=== PATIENT | female | born 1965 | race Caucasian/White ===

== ENCOUNTER 2018-09-14 20:19 | Emergency (ER) | payer OTHER, SELFPAY ==
[2018-09-14 20:37] VITALS: BP 127/69; PULSE 89; RESP 18; TEMP 37.6; O2SAT 98; BMI 27.2
--- NOTE | 2018-09-14 20:42 | DI.RAD.S_ITS ---
PROCEDURE: XR CHEST 2V INDICATIONS: cough/fever TECHNIQUE: 2 views of the chest were acquired. COMPARISON: None. FINDINGS: Surgical changes and devices: Cholecystectomy clips.. Lungs and pleura: Lungs are clear. No pleural effusions or pneumothorax. Mediastinum: Mediastinal contours are normal. Heart size is normal. Bones and chest wall: No suspicious bony abnormalities. Soft tissues appear unremarkable. IMPRESSION: No acute cardiopulmonary disease process. Dictated by: Yue Whitaker MD, PhD on 09/14/2018 at 21:17 Approved by: Yue Whitaker MD, PhD on 09/14/2018 at 21:17
[2018-09-14 21:04] LABS: Influenza A and B by PCR Rapid Negative (Negative)
[2018-09-15] MEDS: SODIUM CHLORIDE 0.9% 1,000 ML 1000 ML IV (00:23)
[2018-09-15 00:30] LABS: Add Manual Diff / Slide Review NO; Basophils Absolute Auto 100 /uL (0-100); Basophils Percent Auto 0.6 % (0-2); Eosinophils Absolute Auto 100 /uL (0-450); Eosinophils Percent Auto 0.6 % (2-4); Hematocrit 37.2 % (36-46); Hemoglobin 12.7 g/dL (12.0-16.0); Lymphocytes Absolute Auto 1900 /uL (1100-4500); Lymphocytes Percent Auto 21.2 % (25-40); Mean Corpuscular Hemoglobin 29.5 PG (26-34); Mean Corpuscular Volume 86.7 fL (80-100); Monocytes Absolute Auto 700 /uL (0-900); Neutrophils Absolute Auto 6200 /uL (1500-7000); Neutrophils Percent Auto 69.6 % (50-75); Platelet Count 224 X10^3/uL (150-400); Red Blood Cell Count 4.29 X10^6/uL (4.0-5.2); Red Cell Distribution Width 13.4 % (11.6-14.8); White Blood Cell Count 8.9 X10^3/uL (4.5-11.0)
--- NOTE | 2018-09-15 00:32 | ED.URI ---
HPI - URI/Sore Throat General Chief Complaint: Upper Respiratory Symptoms Stated Complaint: FEVER, STATES RSV Time Seen by Provider: 09/14/18 22:27 Source: patient and family Mode of arrival: ambulatory Limitations: no limitations History of Present Illness HPI Narrative: 52-year-old former smoker otherwise healthy presents with her and 3 weeks of viral upper respiratory symptoms. She had been told me by a medical provider at a walk-in clinic that she likely has RSV. Patient has ongoing runny nose occasional hacking cough and some wheeze. She denies nausea or vomiting but did have some diarrhea about a week ago. Admittedly her symptoms were worse about a week ago but she thought she would get checked out given how long the symptoms have lasted on the whole. She has had no fever or chills. MD Complaint: cough, rhinorrhea and nasal congestion Onset (ago): week(s) Duration: constant Severity: moderate Relieving factors: nothing Exacerbating factors: nothing Description of mucous: clear Able to tolerate fluids by mouth: Yes Treatments prior to arrival: none Related Data Home Medications Medication Instructions Recorded Confirmed ASPIRIN (Aspirin Low Dose) 81 mg PO QDAY #0 11/28/09 Doxycycline Hyclate (Vibramycin) 100 mg PO PRN #0 11/28/09 ISOSORBIDE MONONITRATE (Isosorbide 30 mg PO HS #0 11/28/09 Mononitrate ER) Diltiazem Hydrochloride (Diltiazem 240 mg PO Q DAY #0 12/04/09 24HR Cd) NITROGLYCERIN (Nitrobid) PRN #0 12/04/09 TRAMADOL HYDROCHLORIDE (Ultram) 200 mg PO Q DAY #0 12/04/09 Review of Systems Constitutional Denies chills, Denies fever(s), Denies lethargy and Reports weakness Eyes Denies change in vision, Denies eye discharge, Denies irritation and Denies loss of vision ENT Ears, Nose, Mouth, and Throat: Denies change in voice, Reports nasal congestion, Reports nasal discharge, Denies neck pain and Denies sore throat Cardiovascular Denies chest pain, Denies irregular heart rhythm, Denies lightheadedness, Denies palpitations, Denies dyspnea, Denies dyspnea on exertion and Denies orthopnea Respiratory Denies cough, Denies dyspnea, Denies dyspnea on exertion and Reports wheezing Gastrointestinal Gastrointestinal: Denies abdominal pain, Denies change in bowel habits, Denies diarrhea, Denies nausea and Denies vomiting Genitourinary Denies hematuria, Denies flank pain, Denies urinary incontinence and Denies urinary urgency Musculoskeletal Denies neck pain Integumentary/Breasts Denies pruritus, Denies erythema, Denies rash and Denies wounds Neurologic Denies confusion, Denies loss of vision and Reports weakness Psychiatric Denies anxiety, Denies confusion, Denies depression, Denies homicidal ideation and Denies suicidal ideation Endocrine Denies palpitations Hematologic/Lymphatic Denies easy bruising Allergic/Immunologic Reports wheezing PFSH Social History Smoking Status: Never smoker Social History Smoking Status: Never smoker Exam Narrative Exam Narrative: GENERAL: This is a well-nourished, well-developed patient, in mild distress. HEAD: Atraumatic. Normocephalic. No temporal or scalp tenderness. EYES: Pupils equal round and reactive. Extraocular motions intact. No scleral icterus. No injection or drainage. ENT: Nose without bleeding, purulent drainage or septal hematoma. Throat without erythema, tonsillar hypertrophy or exudate. Uvula midline. Airway patent. NECK: Trachea midline. No JVD or lymphadenopathy. Supple, nontender, no meningeal signs. CARDIOVASCULAR: Regular rate and rhythm without murmurs, gallops, or rubs. RESPIRATORY: Mild expiratory wheeze no rales or rhonchi GASTROINTESTINAL: Abdomen soft, non-tender, nondistended. No hepato-splenomegaly, or palpable masses. No guarding. EXTREMITIES: No clubbing, cyanosis, or edema. No joint tenderness, effusion, or edema noted. BACK: Nontender without deformity or crepitance. No flank tenderness. NEURO: AOx3. SKIN: No rash or erythema. Initial Vital Signs Initial Vital Signs: Vital Signs Temperature 99.6 F 09/14/18 20:37 Pulse Rate 89 09/14/18 20:37 Respiratory Rate 18 09/14/18 20:37 Blood Pressure 127/69 09/14/18 20:37 Pulse Oximetry 98 09/14/18 20:37 Course Orders Ordered: ED Orders 09/14/18 23:58 Basic Metabolic Panel Stat Complete Blood Count AUTO DIFF Stat 09/15/18 00:20 Monotest Stat Discontinued Medications Sodium Chloride (Normal Saline 0.9%) 1,000 mls @ 1,000 mls/hr IV BOLUS ONE Stop: 09/15/18 00:56 Last Infusion: 09/15/18 01:49 Dose: 0 mls/hr Admin: 09/15/18 00:23 Dose: 1,000 mls/hr Vital Signs - 8 hr 09/15/18 01:39 Temperature 98.4 F Pulse Rate 71 Blood Pressure [Left Arm] 107/70 Pulse Oximetry 96 MDM - URI/Sore Throat Lab Data Result diagrams: 09/15/18 00:20 09/15/18 00:20 Lab Results 09/14/18 09/15/18 09/15/18 Range/Units 20:44 00:20 00:20 WBC 8.9 (4.5-11.0) X10^3/uL RBC 4.29 (4.0-5.2) X10^6/uL Hgb 12.7 (12.0-16.0) g/dL Hct 37.2 (36-46) % MCV 86.7 (80-100) fL MCH 29.5 (26-34) PG MCHC 34.0 (30-36) % RDW 13.4 (11.6-14.8) % Plt Count 224 (150-400) X10^3/uL Neut % (Auto) 69.6 (50-75) % Lymph % (Auto) 21.2 L (25-40) % [place] % (Auto) 8.0 (3-14) % Eos % (Auto) 0.6 L (2-4) % Baso % (Auto) 0.6 (0-2) % Neut # (Auto) 6200 (6044-2644) /uL Lymph # (Auto) 1900 (1679-8088) /uL [place] # (Auto) 700 (0-900) /uL Eos # (Auto) 100 (0-450) /uL Baso # (Auto) 100 (0-100) /uL Sodium 138 (137-145) mmol/L Potassium 3.9 (3.4-5.1) mmol/L Chloride 102 (98-107) mmol/L Carbon Dioxide 27 (22-32) mmol/L BUN 14 (7-17) mg/dL Creatinine 0.80 (0.52-1.04) mg/dL Estimated GFR > 60.0 (>60) mL/min BUN/Creatinine Ratio 17.5 (6-22) Glucose 100 (70-100) mg/dL Calcium 9.5 (8.4-10.2) mg/dL Monoscreen (Negative) Influenza A & B (PCR) Negative (Negative) 09/15/18 Range/Units 00:20 WBC (4.5-11.0) X10^3/uL RBC (4.0-5.2) X10^6/uL Hgb (12.0-16.0) g/dL Hct (36-46) % MCV (80-100) fL MCH (26-34) PG MCHC (30-36) % RDW (11.6-14.8) % Plt Count (150-400) X10^3/uL Neut % (Auto) (50-75) % Lymph % (Auto) (25-40) % [place] % (Auto) (3-14) % Eos % (Auto) (2-4) % Baso % (Auto) (0-2) % Neut # (Auto) (0507-3091) /uL Lymph # (Auto) (2200-3020) /uL [place] # (Auto) (0-900) /uL Eos # (Auto) (0-450) /uL Baso # (Auto) (0-100) /uL Sodium (137-145) mmol/L Potassium (3.4-5.1) mmol/L Chloride (98-107) mmol/L Carbon Dioxide (22-32) mmol/L BUN (7-17) mg/dL Creatinine (0.52-1.04) mg/dL Estimated GFR (>60) mL/min BUN/Creatinine Ratio (6-22) Glucose (70-100) mg/dL Calcium (8.4-10.2) mg/dL Monoscreen Negative (Negative) Influenza A & B (PCR) (Negative) Imaging Data Chest x-ray: Attestation: I personally reviewed and interpreted this imaging study as follows: My impression: No acute process Discharge Plan Departure Patient Disposition: Home Clinical Impression: Viral syndrome Discharge Date/Time: 09/15/18 01:51 Interventions: ED Discharge Assessment Last Done: 09/15/18 01:50 Instructions: DI for Viral Syndrome Activity Restrictions/Additional Instructions: *You have been diagnosed with [acute viral syndrome ] *What to do: *Take medications as directed *Follow up with your primary care provider in 2-3 days, call for an appointment. Let them know you were seen in the Emergency Department and that we ask that you be seen in follow up *Return to ER if you should have any new, worsening or concerning symptoms Prescriptions: No Action ASPIRIN (Aspirin Low Dose) 81 mg PO QDAY Qty: 0 RF: 0 ISOSORBIDE MONONITRATE (Isosorbide Mononitrate ER) 30 mg PO HS Qty: 0 RF: 0 Doxycycline Hyclate (Vibramycin) 100 mg PO PRN Qty: 0 RF: 0 NITROGLYCERIN (Nitrobid) PRN Qty: 0 RF: 0 Diltiazem Hydrochloride (Diltiazem 24HR Cd) 240 mg PO Q DAY Qty: 0 RF: 0 TRAMADOL HYDROCHLORIDE (Ultram) 200 mg PO Q DAY Qty: 0 RF: 0 Referrals: Kelsi Ernandez PA-C [Primary Care Provider] -
[2018-09-15 00:40] LABS: BUN Creatinine Ratio 17.5 (6-22); Blood Urea Nitrogen 14 mg/dL (7-17); Calcium 9.5 mg/dL (8.4-10.2); Carbon Dioxide 27 mmol/L (22-32); Chloride 102 mmol/L (98-107); Estimated Glomerular Filt Rate > 60.0 mL/min (>60); Glucose 100 mg/dL (70-100); HEMOLYSIS < 15 (0-50); Potassium 3.9 mmol/L (3.4-5.1); Sodium 138 mmol/L (137-145)
[2018-09-15 01:28] LABS: Monotest Negative (Negative)
[2018-09-15 01:39] VITALS: BP 107/70; PULSE 71; TEMP 36.9; O2SAT 96
--- NOTE | 2018-09-15 07:11 | ED_ITS ---
HPI - URI/Sore Throat General Chief Complaint: Upper Respiratory Symptoms Stated Complaint: FEVER, STATES RSV Time Seen by Provider: 09/14/18 22:27 Source: patient and family Mode of arrival: ambulatory Limitations: no limitations History of Present Illness HPI Narrative: 52-year-old former smoker otherwise healthy presents with her and 3 weeks of viral upper respiratory symptoms. She had been told me by a medical provider at a walk-in clinic that she likely has RSV. Patient has ongoing runny nose occasional hacking cough and some wheeze. She denies nausea or vomiting but did have some diarrhea about a week ago. Admittedly her symptoms were worse about a week ago but she thought she would get checked out given how long the symptoms have lasted on the whole. She has had no fever or chills. MD Complaint: cough, rhinorrhea and nasal congestion Onset (ago): week(s) Duration: constant Severity: moderate Relieving factors: nothing Exacerbating factors: nothing Description of mucous: clear Able to tolerate fluids by mouth: Yes Treatments prior to arrival: none Related Data Home Medications Medication Instructions Recorded Confirmed ASPIRIN (Aspirin Low Dose) 81 mg PO QDAY #0 11/28/09 Doxycycline Hyclate (Vibramycin) 100 mg PO PRN #0 11/28/09 ISOSORBIDE MONONITRATE (Isosorbide 30 mg PO HS #0 11/28/09 Mononitrate ER) Diltiazem Hydrochloride (Diltiazem 240 mg PO Q DAY #0 12/04/09 24HR Cd) NITROGLYCERIN (Nitrobid) PRN #0 12/04/09 TRAMADOL HYDROCHLORIDE (Ultram) 200 mg PO Q DAY #0 12/04/09 Review of Systems Constitutional Denies chills, Denies fever(s), Denies lethargy and Reports weakness Eyes Denies change in vision, Denies eye discharge, Denies irritation and Denies loss of vision ENT Ears, Nose, Mouth, and Throat: Denies change in voice, Reports nasal congestion, Reports nasal discharge, Denies neck pain and Denies sore throat Cardiovascular Denies chest pain, Denies irregular heart rhythm, Denies lightheadedness, Denies palpitations, Denies dyspnea, Denies dyspnea on exertion and Denies orthopnea Respiratory Denies cough, Denies dyspnea, Denies dyspnea on exertion and Reports wheezing Gastrointestinal Gastrointestinal: Denies abdominal pain, Denies change in bowel habits, Denies diarrhea, Denies nausea and Denies vomiting Genitourinary Denies hematuria, Denies flank pain, Denies urinary incontinence and Denies uri nary urgency Musculoskeletal Denies neck pain Integumentary/Breasts Denies pruritus, Denies erythema, Denies rash and Denies wounds Neurologic Denies confusion, Denies loss of vision and Reports weakness Psychiatric Denies anxiety, Denies confusion, Denies depression, Denies homicidal ideation and Denies suicidal ideation Endocrine Denies palpitations Hematologic/Lymphatic Denies easy bruising Allergic/Immunologic Reports wheezing PFSH Social History Smoking Status: Never smoker Social History Smoking Status: Never smoker Exam Narrative Exam Narrative: GENERAL: This is a well-nourished, well-developed patient, in mild distress. HEAD: Atraumatic. Normocephalic. No temporal or scalp tenderness. EYES: Pupils equal round and reactive. Extraocular motions intact. No scleral icterus. No injection or drainage. ENT: Nose without bleeding, purulent drainage or septal hematoma. Throat without erythema, tonsillar hypertrophy or exudate. Uvula midline. Airway patent. NECK: Trachea midline. No JVD or lymphadenopathy. Supple, nontender, no meningeal signs. CARDIOVASCULAR: Regular rate and rhythm without murmurs, gallops, or rubs. RESPIRATORY: Mild expiratory wheeze no rales or rhonchi GASTROINTESTINAL: Abdomen soft, non-tender, nondistended. No hepato- splenomegaly, or palpable masses. No guarding. EXTREMITIES: No clubbing, cyanosis, or edema. No joint tenderness, effusion, or edema noted. BACK: Nontender without deformity or crepitance. No flank tenderness. NEURO: AOx3. SKIN: No rash or erythema. Initial Vital Signs Initial Vital Signs: Vital Signs Temperature 99.6 F 09/14/18 20:37 Pulse Rate 89 09/14/18 20:37 Respiratory Rate 18 09/14/18 20:37 Blood Pressure 127/69 09/14/18 20:37 Pulse Oximetry 98 09/14/18 20:37 Course Orders Ordered: ED Orders 09/14/18 23:58 Basic Metabolic Panel Stat Complete Blood Count AUTO DIFF Stat 09/15/18 00:20 Monotest Stat Discontinued Medications Sodium Chloride (Normal Saline 0.9%) 1,000 mls @ 1,000 mls/hr IV BOLUS ONE Stop: 09/15/18 00:56 Last Infusion: 09/15/18 01:49 Dose: 0 mls/hr Admin: 09/15/18 00:23 Dose: 1,000 mls/hr Vital Signs - 8 hr 09/15/18 01:39 Temperature 98.4 F Pulse Rate 71 Blood Pressure [Left Arm] 107/70 Pulse Oximetry 96 MDM - URI/Sore Throat Lab Data Result diagrams: 09/15/18 00:20 09/15/18 00:20 Lab Results 09/14/18 09/15/18 09/15/18 Range/Units 20:44 00:20 00:20 WBC 8.9 (4.5-11.0) X10^3/uL RBC 4.29 (4.0-5.2) X10^6/uL Hgb 12.7 (12.0-16.0) g/dL Hct 37.2 (36-46) % MCV 86.7 (80-100) fL MCH 29.5 (26-34) PG MCHC 34.0 (30-36) % RDW 13.4 (11.6-14.8) % Plt Count 224 (150-400) X10^3/uL Neut % (Auto) 69.6 (50-75) % Lymph % (Auto) 21.2 L (25-40) % [place] % (Auto) 8.0 (3-14) % Eos % (Auto) 0.6 L (2-4) % Baso % (Auto) 0.6 (0-2) % Neut # (Auto) 6200 (6588-8165) /uL Lymph # (Auto) 1900 (2065-5371) /uL [place] # (Auto) 700 (0-900) /uL Eos # (Auto) 100 (0-450) /uL Baso # (Auto) 100 (0-100) /uL Sodium 138 (137-145) mmol/L Potassium 3.9 (3.4-5.1) mmol/L Chloride 102 (98-107) mmol/L Carbon Dioxide 27 (22-32) mmol/L BUN 14 (7-17) mg/dL Creatinine 0.80 (0.52-1.04) mg/dL Estimated GFR > 60.0 (>60) mL/min BUN/Creatinine Ratio 17.5 (6-22) Glucose 100 (70-100) mg/dL Calcium 9.5 (8.4-10.2) mg/dL Monoscreen (Negative) Influenza A & B (PCR) Negative (Negative) 09/15/18 Range/Units 00:20 WBC (4.5-11.0) X10^3/uL RBC (4.0-5.2) X10^6/uL Hgb (12.0-16.0) g/dL Hct (36-46) % MCV (80-100) fL MCH (26-34) PG MCHC (30-36) % RDW (11.6-14.8) % Plt Count (150-400) X10^3/uL Neut % (Auto) (50-75) % Lymph % (Auto) (25-40) % [place] % (Auto) (3-14) % Eos % (Auto) (2-4) % Baso % (Auto) (0-2) % Neut # (Auto) (7039-6053) /uL Lymph # (Auto) (3678-5609) /uL [place] # (Auto) (0-900) /uL Eos # (Auto) (0-450) /uL Baso # (Auto) (0-100) /uL Sodium (137-145) mmol/L Potassium (3.4-5.1) mmol/L Chloride (98-107) mmol/L Carbon Dioxide (22-32) mmol/L BUN (7-17) mg/dL Creatinine (0.52-1.04) mg/dL Estimated GFR (>60) mL/min BUN/Creatinine Ratio (6-22) Glucose (70-100) mg/dL Calcium (8.4-10.2) mg/dL Monoscreen Negative (Negative) Influenza A & B (PCR) (Negative) Imaging Data Chest x-ray: Attestation: I personally reviewed and interpreted this imaging study as follows: My impression: No acute process Discharge Plan Departure Patient Disposition: Home Clinical Impression: Viral syndrome Discharge Date/Time: 09/15/18 01:51 Interventions: ED Discharge Assessment Last Done: 09/15/18 01:50 Instructions: DI for Viral Syndrome Activity Restrictions/Additional Instructions: *You have been diagnosed with [acute viral syndrome ] *What to do: *Take medications as directed *Follow up with your primary care provider in 2-3 days, call for an appointment. Let them know you were seen in the Emergency Department and that we ask that you be seen in follow up *Return to ER if you should have any new, worsening or concerning symptoms Prescriptions: No Action ASPIRIN (Aspirin Low Dose) 81 mg PO QDAY Qty: 0 RF: 0 ISOSORBIDE MONONITRATE (Isosorbide Mononitrate ER) 30 mg PO HS Qty: 0 RF: 0 Doxycycline Hyclate (Vibramycin) 100 mg PO PRN Qty: 0 RF: 0 NITROGLYCERIN (Nitrobid) PRN Qty: 0 RF: 0 Diltiazem Hydrochloride (Diltiazem 24HR Cd) 240 mg PO Q DAY Qty: 0 RF: 0 TRAMADOL HYDROCHLORIDE (Ultram) 200 mg PO Q DAY Qty: 0 RF: 0 Referrals: Kelsi Ernandez PA-C [Primary Care Provider] -
== END 2018-09-15 01:51 | disposition home or self-care (01) ==
PROVIDERS: Emergency Provider Emergency Medicine; Family Provider Physician Assistant Medical; PCP Physician Assistant Medical
DX: B34.9 Viral infection, unspecified (principal)
CPT/HCPCS: 36591; 71046; 80048; 85025; 86318; 87400; 96360; 99283; 99284

== ENCOUNTER → 2019-02-22 09:47 | Outpatient (CLI) | payer OTHER, SELFPAY ==
--- NOTE | 2019-02-22 | DI.MRI.S_ITS ---
PROCEDURE: MR ANKLE LT WO CON INDICATIONS: UNSPECIFIED INJURY ON LEFT FOOT TECHNIQUE: Noncontrast sagittal T1 spin echo and T2 fast spin echo with fat saturation, axial proton density fast spin echo and T2 fast spin echo with fat saturation, coronal T1 spin echo and T2 fast spin echo with fat saturation through the ankle/hindfoot. COMPARISON: None. FINDINGS: Image quality: Diagnostic. Bones and joints: No acute fracture, dislocation, or suspicious osseous lesion involving the osseous structures of the midfoot or hindfoot is appreciated. No significant joint effusions are identified. Mild degenerative cystic change and associated marrow edema along the medial border of the talar dome and medial aspect of the body of the talus is identified. This edema extends into the head and neck of the medial talus. There is also marrow edema identified involving the middle cuneiform. The ankle mortise is well-maintained. No osteochondral fragments are appreciated. There is a small plantar calcaneal spur with associated reactive marrow edema. Slight heterogeneity involving the anterior process of the calcaneus probably is related to previous injury. There are mild to moderate degenerative changes involving the talonavicular and tarsonavicular joints. Medial structures: The deltoid and spring ligaments are intact. Slight increased signal of the superomedial band of the spring ligament is noted. The plantar components of the spring ligament are intact. The tibialis posterior, flexor digitorum longus, and flexor hallucis longus tendons appear to be within normal limits. A small amount of fluid is contained within their corresponding tendon sheaths. Minimal subcutaneous edema overlying the medial aspect of the ankle is present. The posterior tibial nerve through the tarsal tunnel appears to be within normal limits. Lateral structures: The anterior and posterior distal tibiofibular ligaments appear to be intact. The anterior and posterior talofibular ligaments also appear intact. The calcaneofibular ligament is intact. There is flattening of the peroneus brevis tendon along the posterior margin of the tip of the lateral malleolus with a questionable short segment longitudinal split tear just above the tip of the lateral malleolus, which is not adequately evaluated. Thickening and increased signal involving the peroneus longus tendon is identified without significant tearing. Fluid is contained within their corresponding tendon sheaths. There is mild subcutaneous edema overlying the lateral malleolus. Anterior structures: The tibialis anterior, extensor hallucis longus, and extensor digitorum longus tendons appear intact. Posterior and plantar structures: Achilles tendon is intact. However, there is mild increased signal and focal thickening involving the medial margin of the distal Achilles tendon. Medial and lateral bands of the plantar fascia are of normal thickness. IMPRESSION: 1. Moderate marrow edema The medial border of the talus may represent bone contusion or degenerative marrow change. Clinical correlation is recommended. No displaced fractures are evident. 2. Mild tenosynovitis involving the medial flexor tendons. 3. Peroneus brevis/longus tendinopathy with a possible short segment longitudinal split tear of the peroneus brevis tendon. 4. Mild distal Achilles tendinopathy. 5. Mild to moderate degenerative changes involving the tarsonavicular and talonavicular joints. Dictated by: Juwan Gomez M.D. on 02/22/2019 at 17:05 Approved by: Juwan Gomez M.D. on 02/22/2019 at 17:11
== END ==
PROVIDERS: PCP Physician Assistant Medical; Visit Provider Podiatrist
DX: S99.922D Unspecified injury of left foot, subsequent encounter (principal); M25.572 Pain in left ankle and joints of left foot; M65.872 Other synovitis and tenosynovitis, left ankle and foot; R26.2 Difficulty in walking, not elsewhere classified
CPT/HCPCS: 73721

== ENCOUNTER → 2020-06-12 16:21 | Outpatient (CLI) | payer OTHER, SELFPAY ==
--- NOTE | 2020-06-12 16:25 | DI.MG.S_ITS ---
BILATERAL DIGITAL SCREENING MAMMOGRAM 3D/2D WITH CAD: 06/12/2020 CLINICAL: Routine screening. Comparison is made to exams dated: 07/15/2017 mammogram, 01/03/2016 mammogram, and 12/14/2013 mammogram - [facility]. There are scattered fibroglandular elements in both breasts. Current study was also evaluated with a Computer Aided Detection (CAD) system. No significant masses, calcifications, or other findings are seen in either breast. There has been no significant interval change. IMPRESSION: NEGATIVE There is no mammographic evidence of malignancy. A 1 year screening mammogram is recommended. This exam was interpreted at Station ID: [id number]. NOTE: For mammograms, a report in lay terms will be sent to the patient. Approximately 15% of breast malignancies will not be visualized mammographically. In the management of a palpable breast mass, a negative mammogram must not discourage biopsy of a clinically suspicious lesion. Electronically Signed By: Davis grey/donna:06/12/2020 16:51:01 letter sent: Normal Exam ACR BI-RADS Category 1: Negative 3341F
== END ==
PROVIDERS: PCP Physician Assistant Medical; Referring Provider Physician Assistant Medical; Visit Provider Physician Assistant Medical
DX: Z12.31 Encounter for screening mammogram for malignant neoplasm of breast (principal)
CPT/HCPCS: 77063; 77067

== ENCOUNTER 2021-06-10 12:59 | Emergency (ER) | payer OTHER, SELFPAY ==
[2021-06-10 13:07] VITALS: BP 150/65; PULSE 78; RESP 18; TEMP 36.6; O2SAT 99
== END 2021-06-10 16:15 | disposition left against medical advice (07) ==
PROVIDERS: Emergency Provider Emergency Medicine; PCP Physician Assistant Medical
DX: Z53.21 Procedure and treatment not carried out due to patient leaving prior to being seen by health care provider (principal)
CPT/HCPCS: 99281

== ENCOUNTER 2021-10-25 13:08 | Emergency (ER) | payer OTHER, SELFPAY ==
[2021-10-25 13:14] VITALS: BP 178/94; PULSE 72; RESP 18; TEMP 36.4; O2SAT 100; BMI 25.1
--- NOTE | 2021-10-25 13:20 | DI.RAD.S_ITS ---
PROCEDURE: XR CHEST 1V INDICATIONS: chest pain TECHNIQUE: One view of the chest was acquired. COMPARISON: [facility], CR, XR CHEST 2V, 09/14/2018, 20:50. FINDINGS: Surgical changes and devices: Cholecystectomy clips. Lungs and pleura: Lungs are clear. No pleural effusions or pneumothorax. Mediastinum: Mediastinal contours appear normal. Heart size is normal. Bones and chest wall: No suspicious bony lesions. Overlying soft tissues appear unremarkable. IMPRESSION: No acute pulmonary process. Dictated by: Michelle Ramachandran M.D. on 10/25/2021 at 14:00 Approved by: Michelle Ramachandran M.D. on 10/25/2021 at 14:00
--- NOTE | 2021-10-25 14:16 | ED_ITS ---
HPI - Chest Pain <Perfecto Ibarra PA-C - Last Filed: 10/25/21 15:51> General Chief Complaint: Chest Pain Stated Complaint: Hx of Angina Time Seen by Provider: 10/25/21 13:38 Source: patient Mode of arrival: Family Vehicle Limitations: no limitations History of Present Illness HPI narrative: This is a 55-year-old female presenting to the emergency department due to an episode of ?head fuzziness and heart palpitations just prior to arrival. Patient states that this has happened multiple times in the last 6 months and has seen a director of analytical development for it for which they did a stress echo and had her sent home with a Holter monitor. She is return the Holter monitors the director of analytical development approximately 10 days ago and has not heard back regarding the results. Has a follow-up appointment with cardiology in roughly 1 month. She also states that they have not informed her of the cardiac stress test results although she states that ?they did not seem to be anything serious? well doing the test. P atient states that she occasionally notices her heart rate going to roughly 100 and then down to the mid 50s when she notices the symptoms. The symptoms began at rest. Concurrently denies any nausea, vomiting, shortness of breath, chest pain, slurred speech, or any other concerning signs or symptoms. Related Data Home Medications Medication Instructions Recorded Confirmed ASPIRIN (Aspirin Low Dose) 81 mg PO QDAY #0 11/28/09 Doxycycline Hyclate (Vibramycin) 100 mg PO PRN #0 11/28/09 ISOSORBIDE MONONITRATE (Isosorbide 30 mg PO HS #0 11/28/09 Mononitrate ER) Diltiazem Hydrochloride (Diltiazem 240 mg PO Q DAY #0 12/04/09 24HR Cd) NITROGLYCERIN (Nitrobid) PRN #0 12/04/09 TRAMADOL HYDROCHLORIDE (Ultram) 200 mg PO Q DAY #0 12/04/09 Allergies Allergy/AdvReac Type Severity Reaction Status Date / Time No Known Drug Allergies Allergy Verified 10/25/21 13:19 Review of Systems <MARCO Barrientos Last Filed: 10/25/21 15:51> Review of Systems Narrative: Positive for heart palpitations Negative for nausea, vomiting, shortness of breath, chest pain, slurred speech Patient History <MARCO Barrientos Last Filed: 10/25/21 15:51> Social History Smoking Status: Never smoker Smoking Status: Never smoker alcohol intake frequency: 0-2 drinks per day Substance Use Type: does not use Exam <MARCO Barrientos Last Filed: 10/25/21 15:51> Narrative Exam Narrative: GENERAL: Well-developed patient, in mild distress. HEAD: Atraumatic. Normocephalic. EYES: Pupils equal round and reactive. Extraocular motions intact. No scleral icterus. No injection or drainage. ENT: Nose without bleeding, purulent drainage. Throat without erythema, tonsillar hypertrophy or exudate. Airway patent. NECK: Trachea midline. Non tender CARDIOVASCULAR: Regular rate and rhythm without murmurs, gallops, or rubs. RESPIRATORY: Clear to auscultation. Breath sounds equal bilaterally. No wheezes, rales, or rhonchi. GASTROINTESTINAL: Abdomen soft, non-tender, nondistended. EXTREMITIES: No edema or joint tenderness. BACK: Nontender without deformity or crepitance. No flank tenderness. NEURO: AOx3. CN 2 through 12 intact SKIN: No rash or erythema of visible areas Initial Vital Signs Initial Vital Signs: Vital Signs Temperature 97.6 F 10/25/21 13:14 Pulse Rate 72 10/25/21 13:14 Respiratory Rate 18 10/25/21 13:14 Blood Pressure 178/94 H 10/25/21 13:14 Pulse Oximetry 100 10/25/21 13:14 <Dawna Sanchez DO - Last Filed: 10/26/21 08:51> Initial Vital Signs Initial Vital Signs: Vital Signs Temperature 97.6 F 10/25/21 13:14 Pulse Rate 72 10/25/21 13:14 Respiratory Rate 18 10/25/21 13:14 Blood Pressure 178/94 H 10/25/21 13:14 Pulse Oximetry 100 10/25/21 13:14 Course <MARCO Barrientos Last Filed: 10/25/21 15:51> Orders Ordered: ED Orders 10/25/21 13:20 XR chest 1V Stat EKG-12 Lead Stat 10/25/21 14:49 Complete Blood Count AUTO DIFF Stat Comprehensive Metabolic Panel Stat Lipase Stat Magnesium Stat Troponin & CK Cardiac Panel Stat Consultations Consultation #1: [id number]: Spoke with Dr. Ling of Cardiology concerning the patient who recommended discharge and follow-up with Dr. Mcqueen regarding results of Baer er monitor. Vital Signs Vital signs: Vital Signs - 8 hr 10/25/21 13:14 Temperature 97.6 F Pulse Rate 72 Respiratory Rate 18 Blood Pressure 178/94 H Pulse Oximetry 100 <Dawna Sanchez DO - Last Filed: 10/26/21 08:51> Orders Ordered: ED Orders 10/25/21 13:20 XR chest 1V Stat EKG-12 Lead Stat 10/25/21 14:49 Complete Blood Count AUTO DIFF Stat Comprehensive Metabolic Panel Stat Lipase Stat Magnesium Stat Troponin & CK Cardiac Panel Stat Vital Signs Vital signs: Vital Signs - 8 hr 10/25/21 13:14 Temperature 97.6 F Pulse Rate 72 Respiratory Rate 18 Blood Pressure 178/94 H Pulse Oximetry 100 MDM - Chest Pain <Perfecto Ibarra PA-C - Last Filed: 10/25/21 15:51> Medical Records Data Medical records narrative: Records obtained from director of analytical development, Dr. Mcqueen from visit on 05/17/2021. On record review patient was negative for evidence of epicardial coronary artery disease on catheterization 06/11/2004. Patient is currently taking diltiazem and isosorbide dinitrate as needed for exertion. Patient also had a stress echo on 08/02/2014 with no abnormality. EKG on 05/17/2021 showed no abnormalities. Stress echo and Holter monitor ordered during that visit and instructed to follow-up in 2-3 months. Stress echo from 07/26/2021 showed no acute abnormalities. Lab Data Result diagrams: 10/25/21 14:49 10/25/21 14:49 Labs: Lab Results 10/25/21 10/25/21 Range/Units 14:49 14:49 WBC 4.2 L (4.5-11.0) X10^3/uL RBC 4.65 (4.0-5.2) X10^6/uL Hgb 14.0 (12.0-16.0) g/dL Hct 40.6 (36-46) % MCV 87.3 (80-100) fL MCH 30.1 (26-34) PG MCHC 34.5 (30-36) % RDW 13.9 (11.6-14.8) % Plt Count 137 L (150-400) X10^3/uL Neut % (Auto) 65.1 (50-75) % Lymph % (Auto) 26.2 (25-40) % [place] % (Auto) 7.1 (3-14) % Eos % (Auto) 0.9 L (2-4) % Baso % (Auto) 0.7 (0-2) % Neut # (Auto) 2700 (4201-4188) /uL Lymph # (Auto) 1100 (9279-9137) /uL [place] # (Auto) 300 (0-900) /uL Eos # (Auto) 0 (0-450) /uL Baso # (Auto) 0 (0-100) /uL Sodium 140 (137-145) mmol/L Potassium 4.2 (3.4-5.1) mmol/L Chloride 105 (98-107) mmol/L Carbon Dioxide 28 (22-32) mmol/L BUN 15 (7-17) mg/dL Creatinine 0.85 (0.52-1.04) mg/dL Estimated GFR > 60 (>60) mL/min BUN/Creatinine Ratio 17.6 (6-22) Glucose 96 (70-100) mg/dL Calcium 9.5 (8.4-10.2) mg/dL Magnesium 2.2 (1.6-2.3) mg/dL Total Bilirubin 0.6 (0.2-1.3) mg/dL AST 24 (14-36) IU/L ALT 16 (<35) IU/L Alkaline Phosphatase 60 (38-126) U/L Total Creatine Kinase 53 (30-135) U/L CK-MB (CK-2) TNP CK-MB (CK-2) Rel Index TNP Troponin I < 0.012 (0.01-0.034) ng/mL Total Protein 7.5 (6.3-8.2) g/dL Albumin 4.5 (3.5-5.0) g/dL Globulin 3.0 (1.7-4.1) g/dL Albumin/Globulin Ratio 1.5 (1.0-2.8) Lipase 78 (23-300) U/L ECG Data Interpretation: EKG is sinus bradycardia with a rate of 55 and free of any signs of ischemia or ectopy. No ST segmental elevation or depression. No T wave inversions MDM Narrative Medical decision making narrative: 55-year-old female presents to the emergency department due to episodes of heart palpitations with slight ?head fuzziness?. Cardiac workup today in the emergency department negative for any acute ACS. EKG unremarkable and troponin within normal limits. Chest x-ray unremarkable. Patient has an established director of analytical development, Dr. Mcqueen, who she saw a few months ago for evaluation as she has had similar symptoms in the past. Stress echo normal and patient was sent home with a Holter monitor but she has not yet heard the results. Spoke with on-call director of analytical development, Dr. Ling, who advised discharging and following up with Dr. Mcqueen regarding the results of the Holter monitor. Patient no acute symptoms to address and was discharged with instructions follow-up with Cardiology. <Dawna Sanchez, - Last Filed: 10/26/21 08:51> Lab Data Labs: Lab Results 10/25/21 10/25/21 Range/Units 14:49 14:49 WBC 4.2 L (4.5-11.0) X10^3/uL RBC 4.65 (4.0-5.2) X10^6/uL Hgb 14.0 (12.0-16.0) g/dL Hct 40.6 (36-46) % MCV 87.3 (80-100) fL MCH 30.1 (26-34) PG MCHC 34.5 (30-36) % RDW 13.9 (11.6-14.8) % Plt Count 137 L (150-400) X10^3/uL Neut % (Auto) 65.1 (50-75) % Lymph % (Auto) 26.2 (25-40) % [place] % (Auto) 7.1 (3-14) % Eos % (Auto) 0.9 L (2-4) % Baso % (Auto) 0.7 (0-2) % Neut # (Auto) 2700 (5718-3303) /uL Lymph # (Auto) 1100 (7303-4904) /uL [place] # (Auto) 300 (0-900) /uL Eos # (Auto) 0 (0-450) /uL Baso # (Auto) 0 (0-100) /uL Sodium 140 (137-145) mmol/L Potassium 4.2 (3.4-5.1) mmol/L Chloride 105 (98-107) mmol/L Carbon Dioxide 28 (22-32) mmol/L BUN 15 (7-17) mg/dL Creatinine 0.85 (0.52-1.04) mg/dL Estimated GFR > 60 (>60) mL/min BUN/Creatinine Ratio 17.6 (6-22) Glucose 96 (70-100) mg/dL Calcium 9.5 (8.4-10.2) mg/dL Magnesium 2.2 (1.6-2.3) mg/dL Total Bilirubin 0.6 (0.2-1.3) mg/dL AST 24 (14-36) IU/L ALT 16 (<35) IU/L Alkaline Phosphatase 60 (38-126) U/L Total Creatine Kinase 53 (30-135) U/L CK-MB (CK-2) TNP CK-MB (CK-2) Rel Index TNP Troponin I < 0.012 (0.01-0.034) ng/mL Total Protein 7.5 (6.3-8.2) g/dL Albumin 4.5 (3.5-5.0) g/dL Globulin 3.0 (1.7-4.1) g/dL Albumin/Globulin Ratio 1.5 (1.0-2.8) Lipase 78 (23-300) U/L ECG Data Interpretation: EKG is sinus bradycardia with a rate of 55 and free of any signs of ischemia or ectopy. No ST segmental elevation or depression. No T wave inversions [place]-normal sinus rhythm rate 55 NE interval 136 you were seen for PTC [address] changes no priors to compare Discharge Plan Departure Patient Disposition: Home Clinical Impression: Heart palpitations Instructions: DI for Acute Coronary Syndrome, DI for Angina, DI for Arrhythmias Activity Restrictions/Additional Instructions: Thank you for coming to the [facility] Emergency Department today. I spoke with the on-call director of analytical development and he recommends you be discharged with instructions to follow-up with Dr. Mcqueen to attempt to obtain the results of the Holter monitor evaluation. Your workup today showed no evidence of a heart attack or any other acute findings. Please follow-up with your director of analytical development on Thursday. I hope you feel better soon. Prescriptions: No Action ASPIRIN (Aspirin Low Dose) 81 mg PO QDAY Qty: 0 0RF ISOSORBIDE MONONITRATE (Isosorbide Mononitrate ER) 30 mg PO HS Qty: 0 0RF Doxycycline Hyclate (Vibramycin) 100 mg PO PRN Qty: 0 0RF NITROGLYCERIN (Nitrobid) PRN Qty: 0 0RF Diltiazem Hydrochloride (Diltiazem 24HR Cd) 240 mg PO Q DAY Qty: 0 0RF TRAMADOL HYDROCHLORIDE (Ultram) 200 mg PO Q DAY Qty: 0 0RF Referrals: Kelsi Ernandez PA-C [Primary Care Provider] - Stand Alone Forms: Work Release Note <Dawna Sanchez DO - Last Filed: 10/26/21 08:51> Cosign ED Attending Cosignature Attestation: I was immediately available in the department for consultation. Documentation has been reviewed. I agree with assessment and plan.
[2021-10-25 14:58] LABS: Add Manual Diff / Slide Review NO; Basophils Absolute Auto 0 /uL (0-100); Basophils Percent Auto 0.7 % (0-2); Eosinophils Absolute Auto 0 /uL (0-450); Eosinophils Percent Auto 0.9 % (2-4); Hematocrit 40.6 % (36-46); Lymphocytes Absolute Auto 1100 /uL (1100-4500); Lymphocytes Percent Auto 26.2 % (25-40); Mean Corpuscular HGB Conc 34.5 % (30-36); Mean Corpuscular Hemoglobin 30.1 PG (26-34); Mean Corpuscular Volume 87.3 fL (80-100); Monocytes Absolute Auto 300 /uL (0-900); Monocytes Percent Auto 7.1 % (3-14); Neutrophils Absolute Auto 2700 /uL (1500-7000); Neutrophils Percent Auto 65.1 % (50-75); Platelet Count 137 X10^3/uL (150-400); Red Blood Cell Count 4.65 X10^6/uL (4.0-5.2); Red Cell Distribution Width 13.9 % (11.6-14.8); White Blood Cell Count 4.2 X10^3/uL (4.5-11.0)
[2021-10-25 15:13] LABS: Alanine Aminotransferase 16 IU/L (<35); Albumin 4.5 g/dL (3.5-5.0); Albumin Globulin Ratio 1.5 (1.0-2.8); Alkaline Phosphatase 60 U/L (38-126); Aspartate Aminotransferase 24 IU/L (14-36); BUN Creatinine Ratio 17.6 (6-22); Bilirubin Total 0.6 mg/dL (0.2-1.3); Blood Urea Nitrogen 15 mg/dL (7-17); Calcium 9.5 mg/dL (8.4-10.2); Carbon Dioxide 28 mmol/L (22-32); Chloride 105 mmol/L (98-107); Creatine Kinase 53 U/L (30-135); Estimated Glomerular Filt Rate > 60 mL/min (>60); Glucose 96 mg/dL (70-100); HEMOLYSIS 16 (0-50); Lipase 78 U/L (23-300); Magnesium 2.2 mg/dL (1.6-2.3); Potassium 4.2 mmol/L (3.4-5.1); Sodium 140 mmol/L (137-145); Total Protein 7.5 g/dL (6.3-8.2)
[2021-10-25 15:24] LABS: Troponin I < 0.012 ng/mL (0.01-0.034)
== END 2021-10-25 16:06 | disposition home or self-care (01) ==
PROVIDERS: Emergency Medicine; Emergency Provider Physician Assistant Medical; PCP Physician Assistant Medical
DX: R00.2 Palpitations (principal); R07.9 Chest pain, unspecified
CPT/HCPCS: 36415; 71045; 80053; 82550; 83690; 83735; 84484; 85025; 93005; 93010; 99282; 99283

== ENCOUNTER → 2022-03-21 10:43 | Outpatient (CLI) | payer OTHER, SELFPAY ==
--- NOTE | 2022-03-21 | DI.MG.S_ITS ---
BILATERAL DIGITAL SCREENING MAMMOGRAM 3D/2D WITH CAD: 03/21/2022 Comparison is made to exams dated: 06/12/2020 mammogram, 07/15/2017 mammogram, and 01/03/2016 mammogram - [facility]. There are scattered areas of fibroglandular density in both breasts (category b / 25%-50% glandular tissue). Current study was also evaluated with a Computer Aided Detection (CAD) system. There is a possible new oval asymmetry in the left breast at 4 o'clock middle depth. No other significant masses, calcifications, or other findings are seen in either breast. IMPRESSION: INCOMPLETE: NEEDS ADDITIONAL IMAGING EVALUATION The possible new oval asymmetry in the left breast is indeterminate. Additional views with possible ultrasound are recommended. Based on the Tyrer Cuzick model (a risk assessment model) the patient's lifetime risk is 6.8% and her 10 year risk is 2.5%. According to the ACR, ACS, and NCCN guidelines, an annual breast MRI exam along with mammogram is recommended if the patient's lifetime risk is 20% or greater. This exam was interpreted at Station ID: [id number]. NOTE: For mammograms, a report in lay terms will be sent to the patient. Approximately 15% of breast malignancies will not be visualized mammographically. In the management of a palpable breast mass, a negative mammogram must not discourage biopsy of a clinically suspicious lesion. Electronically Signed By: Marjan khanna/donna:03/21/2022 12:16:39 letter sent: Additional Imaging Needed ACR BI-RADS Category 0: Incomplete 3340F
== END ==
PROVIDERS: PCP Physician Assistant Medical; Referring Provider Physician Assistant Medical; Visit Provider Physician Assistant Medical
DX: Z12.31 Encounter for screening mammogram for malignant neoplasm of breast (principal)
CPT/HCPCS: 77063; 77067

== ENCOUNTER → 2022-04-18 08:45 | Outpatient (CLI) | payer OTHER, SELFPAY ==
--- NOTE | 2022-04-18 | DI.MG.S_ITS ---
UNILATERAL LEFT DIGITAL DIAGNOSTIC MAMMOGRAM 3D/2D WITH ADDITIONAL VIEWS: 04/18/2022 CLINICAL: Additional evaluation requested from prior study. Comparison is made to exams dated: 03/21/2022 mammogram, 06/12/2020 mammogram, and 07/15/2017 mammogram - [facility]. There are scattered areas of fibroglandular density in the left breast (category b / 25%-50% glandular tissue). The possible oval asymmetry in the left breast at 4 o'clock middle depth is not reproduced and presumably represented superimposed breast tissue. No other significant masses or calcifications are seen in the breast. IMPRESSION: NEGATIVE There is no mammographic evidence of malignancy. Return to annual mammogram screening schedule is recommended. Based on the Tyrer Cuzick model (a risk assessment model) the patient's lifetime risk is 6.8% and her 10 year risk is 2.5%. According to the ACR, ACS, and NCCN guidelines, an annual breast MRI exam along with mammogram is recommended if the patient's lifetime risk is 20% or greater. This exam was interpreted at Station ID: [id number]. NOTE: For mammograms, a report in lay terms will be sent to the patient. Approximately 15% of breast malignancies will not be visualized mammographically. In the management of a palpable breast mass, a negative mammogram must not discourage biopsy of a clinically suspicious lesion. Electronically Signed By: Davis grey/donna:04/18/2022 16:31:43 letter sent: Normal Exam ACR BI-RADS Category 1: Negative 3341F
== END ==
PROVIDERS: PCP Physician Assistant Medical; Referring Provider Family Medicine; Visit Provider Family Medicine
DX: R92.8 Other abnormal and inconclusive findings on diagnostic imaging of breast (principal)
CPT/HCPCS: 77065; G0279

== ENCOUNTER → 2023-04-02 08:06 | Outpatient (CLI) | payer OTHER, SELFPAY ==
--- NOTE | 2023-04-02 | DI.MG.S_ITS ---
BILATERAL DIGITAL SCREENING MAMMOGRAM 3D/2D WITH CAD: 04/02/2023 CLINICAL: Routine screening. Family history of breast cancer. Comparison is made to exams dated: 03/21/2022 mammogram, 06/12/2020 mammogram, 04/18/2022 mammogram, and 07/15/2017 mammogram - [facility]. There are scattered areas of fibroglandular density in both breasts (category b / 25%-50% glandular tissue). Current study was also evaluated with a Computer Aided Detection (CAD) system. No significant masses, calcifications, or other findings are seen in either breast. There has been no significant interval change. IMPRESSION: NEGATIVE There is no mammographic evidence of malignancy. A 1 year screening mammogram is recommended. Based on the Tyrer Cuzick model (a risk assessment model) the patient's lifetime risk is 13.0% and her 10 year risk is 5.1%. According to the ACR, ACS, and NCCN guidelines, an annual breast MRI exam along with mammogram is recommended if the patient's lifetime risk is 20% or greater. This exam was interpreted at Station ID: [id number]. NOTE: For mammograms, a report in lay terms will be sent to the patient. Approximately 15% of breast malignancies will not be visualized mammographically. In the management of a palpable breast mass, a negative mammogram must not discourage biopsy of a clinically suspicious lesion. Electronically Signed By: Davis grey/donna:04/02/2023 14:26:42 letter sent: Normal Exam ACR BI-RADS Category 1: Negative 3341F
== END ==
PROVIDERS: PCP Physician Assistant Medical; Referring Provider Physician Assistant Medical; Visit Provider Physician Assistant Medical
DX: Z12.31 Encounter for screening mammogram for malignant neoplasm of breast (principal); Z80.3 Family history of malignant neoplasm of breast
CPT/HCPCS: 77063; 77067

== ENCOUNTER → 2024-04-14 17:49 | Outpatient (CLI) | payer OTHER, SELFPAY ==
--- NOTE | 2024-04-14 17:50 | DI.MG.S_ITS ---
BILATERAL DIGITAL SCREENING MAMMOGRAM 3D/2D WITH CAD: 04/14/2024 CLINICAL: Routine screening. Family history of breast cancer. Comparison is made to exams dated: 04/02/2023 mammogram, 03/21/2022 mammogram, and 06/12/2020 mammogram - [facility]. There are scattered areas of fibroglandular density (category b / 25%-50% glandular tissue). Current study was also evaluated with a Computer Aided Detection (CAD) system. No significant masses, calcifications, or other findings are seen in either breast. There has been no significant interval change. IMPRESSION: NEGATIVE There is no mammographic evidence of malignancy. A 1 year screening mammogram is recommended. Based on the Tyrer Cuzick model (a risk assessment model) the patient's lifetime risk is 12.8% and her 10 year risk is 5.2%. According to the ACR, ACS, and NCCN guidelines, an annual breast MRI exam along with mammogram is recommended if the patient's lifetime risk is 20% or greater. This exam was interpreted at Station ID: [id number]. NOTE: For mammograms, a report in lay terms will be sent to the patient. Approximately 15% of breast malignancies will not be visualized mammographically. In the management of a palpable breast mass, a negative mammogram must not discourage biopsy of a clinically suspicious lesion. Electronically Signed By: Rehan lambert/donna:04/15/2024 23:57:09 letter sent: Normal Exam ACR BI-RADS Category 1: Negative
== END ==
PROVIDERS: PCP Physician Assistant Medical; Referring Provider Physician Assistant Medical; Visit Provider Physician Assistant Medical
DX: Z12.31 Encounter for screening mammogram for malignant neoplasm of breast (principal); Z80.3 Family history of malignant neoplasm of breast
CPT/HCPCS: 77063; 77067

== ENCOUNTER 2024-09-29 12:24 | Day surgery (SDC) | payer OTHER, SELFPAY ==
--- NOTE | 2024-09-29 | PATH_ITS ---
[facility] Accession Number: [id number] No. of containers..02 Tissue . 01 Material submitted: . PART A: cecum - CECUM POLYP PART B: rectum - DISTAL RECTAL POLYP . 01 Diagnosis: A. CECAL POLYP: Tubular adenoma. . B. DISTAL RECTAL POLYP: Traditional serrated adenoma. Negative for high-grade dysplasia or malignancy. MRV 10/03/2024 1344 Local . 01 Electronically signed: . Bebo Lim MD, PhD, Pathologist NPI- [id number] . 01 Gross description: . A. Received in formalin with two identifiers and cecal polyp, is a single dolan soft tissue fragment, 0.4 cm in greatest dimension, submitted in A1. B. Received in formalin with two identifiers and distal rectal polyp, are three dolan soft tissue fragments ranging from 0.4 x 0.4 x 0.3 cm to 1.3 x 1.3 x 1.0 cm. The two largest fragments are differentially inked, sectioned, and submitted entirely in B1. ([id number]) /MRV 09/30/2024 1813 Local . 01 Pathologist provided ICD-10: D12.0, D12.8 . 01 CPT . 362740, 367475 Specimen Comment: A courtesy copy of this report has been sent to [phone] Performed at: [address] [id number] MD Farzad Zamora MD Phone: [phone]
[2024-09-29 13:22] VITALS: BP 134/85; PULSE 70; RESP 16; TEMP 36.3; O2SAT 100
[2024-09-29] MEDS: LACTATED RINGERS 1,000 ML 42 ML IV (13:30)
--- NOTE | 2024-09-29 14:10 | PM.PREOP ---
Pre-operative Note COVID-19 COVID-19 status: Not tested Interval Note History & Physical reviewed/Exam performed by Physician: Yes Changes to H&P: No ASA Class (for procedural sedation): II
--- NOTE | 2024-09-29 14:45 | SUR.OPER ---
hot snare,,, pad on r thigh ,,site clear bovie settings 2
--- NOTE | 2024-09-29 14:53 | PM.OP.COLON ---
Operative Date/Time/Diagnoses Date of procedure: 09/29/24 Time of procedure: 14:53 Pre-op diagnosis: Rectal bleed Post-op diagnosis: same Procedure & Clinicians Study performed: Colonoscopy Same procedure as scheduled: Yes Surgeon: Allen Campos Procedure Notes Procedure in detail: Surgeon: Allen Campos MD Anesthesia: Brien Barlow D.O. Procedure: The patient was brought to the endoscopy suite, placed in left lateral decubitus position. The patient was connected to monitoring devices. A time-out was performed. Sedation was administered. Once the patient was adequately sedated, a digital rectal exam was performed and was normal. The scope was then inserted and advanced to the cecum where the appendiceal orifice was identified and photographed. The scope was then slowly withdrawn over greater than 6 minutes. The mucosa was thoroughly inspected. There was a small polyp in the cecum removed with Jumbo forceps. The scope was retroflexed in the rectum. There was a pedunculated polyp in the distal rectum measuring proximally 1 cm. It was removed with a hot snare. Few additional segments of irregular appearing mucosa were removed from the base of the polypectomy scar and sent with the specimen. The scope was straightened and removed. The patient was awakened and brought to recovery. The rubber-band ligation was aborted because it the large distal rectal polyp was the likely explanation for her rectal bleeding and prolapsing sensation. Scope withdrawal time: 15 minutes Sedation time: 25 minutes EBL: 3 mL Findings: Small cecal polyp and 1 cm distal rectal polyp Post-procedure Disposition: PACU
[2024-09-29 14:55] VITALS: BP 125/50; PULSE 62; RESP 16; TEMP 36.9; O2SAT 99
== END 2024-09-29 15:05 | disposition home or self-care (01) ==
PROVIDERS: PCP Physician Assistant Medical; Referring Provider Surgery; Visit Provider Surgery
PROC: 0DJD8ZZ Inspection of Lower Intestinal Tract, Via Natural or Artificial Opening Endoscopic (ICD-10-PCS; CPT 45378; principal; 2024-09-29 13:30)
DX: K62.5 Hemorrhage of anus and rectum (principal); D12.0 Benign neoplasm of cecum; D12.8 Benign neoplasm of rectum
CPT/HCPCS: 45385; 45380; J2704

== ENCOUNTER → 2025-04-29 08:00 | Outpatient (CLI) | payer OTHER, SELFPAY ==
--- NOTE | 2025-04-29 08:02 | DI.MG.S_ITS ---
MM screening mammo BI: 04/29/2025. BI-RADS: 1 CLINICAL: 59-year old female for bilateral screening mammogram. Tyrer-Cuzick lifetime risk of 11.4%. Current reported family history of breast cancer: sister. PRIOR EXAMS 04/14/2024, 04/02/2023, 04/18/2022, 03/21/2022. MAMMOGRAPHY TECHNIQUE: 2D and 3D (tomosynthesis) digital mammographic views obtained, with additional images as needed for full coverage. Current study was also evaluated with a Computer Aided Detection (CAD) system. DENSITY B. There are scattered areas of fibroglandular density. MAMMOGRAPHY FINDINGS Bilateral: No suspicious mass, asymmetry, microcalcification, or other abnormality seen. IMPRESSION: * No evidence of malignancy. RECOMMENDATIONS Bilateral * Annual screening mammography. OVERALL ASSESSMENT CATEGORY BI-RADS-1: Negative. The [employer] recommends annual screening mammography beginning at age 40 for women with average risk of breast cancer. ELECTRONICALLY SIGNED: Rehan Correa M.D. on 05/01/2025 at 07:43:43 AM PT Interpreting Station ID: [id number]
== END ==
LOC: MAMMO 08:01
PROVIDERS: PCP Physician Assistant Medical; Referring Provider Physician Assistant Medical; Visit Provider Physician Assistant Medical
DX: Z12.31 Encounter for screening mammogram for malignant neoplasm of breast (principal); Z80.3 Family history of malignant neoplasm of breast
CPT/HCPCS: 77063; 77067